=== PATIENT | female | born 1950 | race Caucasian/White ===

== ENCOUNTER 2017-05-21 07:30 | Outpatient (CLI) | payer MEDICARE, OTHER ==
[2016-05-07 22:47] VITALS: BP 171/84
[2017-05-21 08:16] LABS: eGFR (African) > 60; eGFR (Non-African) > 60
== END 2017-05-21 07:32 ==
LOC: LAB 07:30
PROVIDERS: ATTEND Family Medicine
DX: I10 Essential (primary) hypertension (principal); R73.9 Hyperglycemia, unspecified
CPT/HCPCS: 36415; 80053; 80061; 83036

== ENCOUNTER 2017-08-20 10:48 | Outpatient (CLI) | payer MEDICARE, OTHER ==
[2016-05-07 22:47] VITALS: BP 171/84
== END 2017-08-20 10:50 ==
LOC: LABRHC 10:48
PROVIDERS: ATTEND Family Medicine
DX: N39.0 Urinary tract infection, site not specified (principal)
CPT/HCPCS: 87086; 87186

== ENCOUNTER 2017-08-27 09:35 | Outpatient (CLI) | payer MEDICARE, OTHER ==
[2016-05-07 22:47] VITALS: BP 171/84
== END 2017-08-27 09:36 ==
LOC: LAB 09:35
PROVIDERS: ATTEND Family Medicine
DX: R30.0 Dysuria (principal)
CPT/HCPCS: 87086

== ENCOUNTER 2017-11-02 16:37 | Outpatient (CLI) | payer MEDICARE, OTHER ==
[2016-05-07 22:47] VITALS: BP 171/84
== END 2017-11-02 16:40 ==
LOC: LABRHC 16:37
PROVIDERS: ATTEND Physician Assistant
DX: R30.0 Dysuria (principal)
CPT/HCPCS: 87086; 87186

== ENCOUNTER 2017-11-23 09:55 | Outpatient (CLI) | payer MEDICARE, OTHER ==
[2016-05-07 22:47] VITALS: BP 171/84
[2017-11-23 10:20] LABS: APPEARANCE,URINE Cloudy (CLEAR); COLOR,URINE Yellow (YELLOW); OCCULT BLOOD,URINE Negative (NEGATIVE); PH URINE 5.5 (5.0 - 8.0)
== END 2017-11-23 09:56 ==
LOC: LAB 09:55
PROVIDERS: ATTEND Family Medicine
DX: N39.0 Urinary tract infection, site not specified (principal)
CPT/HCPCS: 81002; 87086

== ENCOUNTER 2018-04-26 17:45 | Emergency (ER) | payer MEDICARE, OTHER ==
--- NOTE | 2018-04-26 17:49 | ED Physician Documentation ---
General Adult - HISTORIAN Historian: patient - HPI Stated Complaint: urinary urgency and dysuria Chief Complaint: Female Urogenital Problems Onset: hours (6) Timing: still present Severity: mild Further Comments: yes (She states she started early this am with urgency and feeling like she needed to void with small outputs. She denies fever. She then started with OTC meds which helped only briefly. She states that she has had this in the past and got "really sick" she states she called the clinic at 1 but they were already closed. Denies any back pain) Last known Well Code/Unknown Code: Unknown - ROS CONST: recent illness (cough ) GI/: problems urinating, nausea. denies: vomiting, diarrhea MS/SKIN/LYMPH: none NEURO/PSYCH: denies: headache, fainting, dizziness - PAST HX Past History: none Allergies/Adverse Reactions: Allergies Allergy/AdvReac Type Severity Reaction Status Date / Time erythromycin base Allergy Intermediate Rash Verified 04/26/18 18:50 Penicillins Allergy Intermediate Rash Verified 04/26/18 18:50 demeclocycline HCl AdvReac Intermediate Rash Verified 04/26/18 18:50 [From Declomycin] - SOCIAL HX Smoking History: non-smoker Alcohol Use: none Drug Use: none - FAMILY HX Family History: No - VITAL SIGNS Vital Signs: Vital Signs Temp Pulse Resp BP Pulse Ox 171/84 05/07/16 22:44 - REVIEWED ASSESSMENTS Nursing Assessment Reviewed: Yes Vitals Reviewed: Yes General Adult Physical Exam - PHYSICAL EXAM GENERAL APPEARANCE: no distress EENT: eye inspection normal, ENT inspection normal NECK: normal inspection RESPIRATORY: no resp distress, chest non-tender, breath sounds normal CVS: reg rate & rhythm, heart sounds normal, equal pulses, no murmur ABDOMEN: soft, normal bowel sounds, no distension, non-tender BACK: normal inspection, no CVA tenderness SKIN: warm/dry, normal color EXTREMITIES: non-tender, normal range of motion, no evidence of injury, no edema NEURO: oriented X3, CN's nml as tested, motor nml Discharge Clincal Impression: UTI (urinary tract infection) Qualifiers: Urinary tract infection type: site unspecified Hematuria presence: without hematuria Qualified Code(s): N39.0 - Urinary tract infection, site not specified Referrals: Anh Veras MD [Primary Care Provider] - 2 Days Comments: 1. Bactrim DS take 1 by mouth BID x 10 days 2. Continue OTC meds as needed for pain 3. Increase fluids 4. See PCP in 10 days for follow up 5. Return to ER for any concerns Condition: Stable Disposition: 01 HOME, SELF-CARE Decision to Admit: NO Date of Decison to Admit: 04/26/18 Decision Time: 18:08
[2018-04-26 18:39] VITALS: BP 142/65
[2018-04-27 07:55] LABS: APPEARANCE,URINE AMBER (CLEAR); COLOR,URINE CLEAR (YELLOW); OCCULT BLOOD,URINE 1+ (NEGATIVE)
== END 2018-04-26 18:30 | disposition home or self-care (01) ==
LOC: ED 17:45
DX: N39.0 Urinary tract infection, site not specified (principal)
CPT/HCPCS: 81002; 87086; 87186; 99283

== ENCOUNTER 2018-09-12 07:39 | Outpatient (CLI) | payer MEDICARE, OTHER ==
[2018-09-12 08:59] LABS: eGFR (Non-African) > 60
== END 2018-09-12 07:44 | disposition home or self-care (01) ==
LOC: LAB 07:39
PROVIDERS: ATTEND Family Medicine
DX: I10 Essential (primary) hypertension (principal)
CPT/HCPCS: 36415; 80053; 80061

== ENCOUNTER 2018-10-01 08:04 | Outpatient (CLI) | payer OTHER | END 2018-10-01 08:06 | LOC: LAB 08:04 | PROVIDERS: ATTEND Family Medicine | DX: E11.9 Type 2 diabetes mellitus without complications (principal) | CPT/HCPCS: 36415; 83036 ==

== ENCOUNTER 2018-10-29 13:55 | Outpatient (CLI) | payer OTHER | END 2018-10-29 14:00 | LOC: LABRHC 13:55 | PROVIDERS: ATTEND Family Medicine | DX: R30.0 Dysuria (principal) | CPT/HCPCS: 87086 ==

== ENCOUNTER 2018-11-14 12:48 | Outpatient (CLI) | payer OTHER | END 2018-11-14 12:50 | LOC: OUT 12:48 | PROVIDERS: ATTEND Family Medicine | DX: Z71.3 Dietary counseling and surveillance (principal); E11.9 Type 2 diabetes mellitus without complications; Z79.84 Long term (current) use of oral hypoglycemic drugs | CPT/HCPCS: 97802 ==

== ENCOUNTER 2019-01-08 08:36 | Outpatient (CLI) | payer OTHER | END 2019-01-08 08:38 | LOC: LAB 08:36 | PROVIDERS: ATTEND Family Medicine | DX: E11.9 Type 2 diabetes mellitus without complications (principal) | CPT/HCPCS: 36415; 83036 ==

== ENCOUNTER 2019-07-09 08:06 | Outpatient (CLI) | payer OTHER ==
[2019-07-09 08:43] LABS: A1C 6.2 % (<5.7)
[2019-07-09 09:07] LABS: HDL 43 mg/dL (>40); eGFR (Non-African) > 60
== END 2019-07-09 08:11 | disposition home or self-care (01) ==
LOC: LAB 08:06
PROVIDERS: ATTEND Family Medicine
DX: E11.9 Type 2 diabetes mellitus without complications (principal)
CPT/HCPCS: 36415; 80053; 80061; 83036; 87086; 87186

== ENCOUNTER 2019-07-26 07:12 | Emergency (ER) | payer OTHER ==
[2019-07-26 07:35] VITALS: BP 165/88
--- NOTE | 2019-07-26 07:35 | ED Physician Documentation ---
Female Urogenital Problems - HISTORIAN Historian: patient - HPI Stated Complaint: UTI symptoms Chief Complaint: Female Urogenital Problems Additional Information: 69 year old female presents with urinary urgency and frequency. She saw her PCP on 07/09/19 for UTI and started on Augmentin. She states that she took 3 days worth but she thought it gave her a headache so she quit. Viewed urine culture completed by PCP and sensitivity to Augmentin. Explained the importance of taking the Augmentin and she agreed. Onset: days ago Severity: moderate Location of Pain: pelvic pain - Associated Symptoms Urinary Symptoms: frequent urination, discomfort w/ urination, urgency w/ urination - ROS CONST: none GI/: denies: nausea, vomiting CVS/RESP: none EYES/ENT: none NEURO/PSYCH: none MS/SKIN/LYMPH: none - PAST HX Past History: other (GERD, Depression) Other History: diabetes Type 2, hypertension Immunizations: UTD Allergies/Adverse Reactions: Allergies Allergy/AdvReac Type Severity Reaction Status Date / Time erythromycin base Allergy Intermediate Rash Verified 07/26/19 07:32 Penicillins Allergy Intermediate Rash Verified 07/26/19 07:32 demeclocycline HCl AdvReac Intermediate Rash Verified 07/26/19 07:32 [From Declomycin] Home Medications: Ambulatory Orders Medication Instructions Recorded Phenazopyridine HCl [Pyridium] 200 mg PO TID #6 tablet 07/26/19 - SOCIAL HX Smoking History: non-smoker Alcohol Use: none Drug Use: none - FAMILY HX Family History: none - VITAL SIGNS Vital Signs: Vital Signs Temp Pulse Resp BP Pulse Ox 97.7 F 89 20 165/88 93 07/26/19 07:12 07/26/19 07:12 07/26/19 07:12 07/26/19 07:12 07/26/19 07:12 - REVIEWED ASSESSMENTS Nursing Assessment Reviewed: Yes Vitals Reviewed: Yes ED Results Lab/Radiology - Orders Orders: ED Orders Category Date Time Status Phenazopyridine HCl [Pyridium] Med 07/26/19 07:31 Once 200 mg PO NOW ONE Female Urogenital Problems - EXAM General Appearance: no acute distress, alert EENT: eye inspection normal, ENT inspection normal, no signs of dehydration, OSCAR Neck: nml inspection Respiratory: breath sounds nml CVS: heart sounds normal Abdomen: soft, non-tender Skin: color nml, no rash, warm,dry Extremities: non-tender Neuro: oriented X3, motor nml, sensation nml, mood/affect nml, cognition normal Discharge Clincal Impression: UTI (urinary tract infection) Prescriptions: Phenazopyridine HCl [Pyridium] 200 mg PO TID #6 tablet Referrals: Anh Veras MD [Primary Care Provider] - 2 Days Additional Instructions: Continue to take Augmentin twice a day as directed May take Pyridium 200mg by mouth 3 times a day Increase water intake; Increase Protein Take Tylenol if you develop headache Follow up with PCP in one week as needed Condition: Good Disposition: HOME, SELF-CARE Decision to Admit: NO Decision Time: 07:48
[2019-07-26] MEDS: PHENAZOPYRIDINE HCL 200 MG TABLET PO ONE (07:36)
[2019-07-26 09:59] LABS: APPEARANCE,URINE CLEAR (CLEAR); COLOR,URINE AMBER (YELLOW); OCCULT BLOOD,URINE 3+ (NEGATIVE)
== END 2019-07-26 07:41 | disposition home or self-care (01) ==
LOC: ED 07:12
DX: N39.0 Urinary tract infection, site not specified (principal)
CPT/HCPCS: 81002; 99283

== ENCOUNTER 2019-07-30 14:43 | Outpatient (CLI) | payer OTHER | END 2019-07-30 14:48 | LOC: LAB 14:43 | PROVIDERS: ATTEND Family Medicine | DX: R30.0 Dysuria (principal) | CPT/HCPCS: 87086; 87184 ==